=== PATIENT | female | born 2005 | race Caucasian/White ===

== ENCOUNTER 2024-09-22 17:34 | Emergency (ER) | payer SELFPAY ==
[2024-09-22 17:45] VITALS: BP 116/82; PULSE 77; RESP 16; TEMP 36.9; O2SAT 100; BMI 35.5
[2024-09-22 18:30] LABS: Microscopic, Urine URINE MICROSCOPIC (MICROSCOPIC)
[2024-09-22 18:35] LABS: Bilirubin,Urine Negative (Negative); Color,Urine YELLOW (Yellow); Glucose,Urine (UA) Negative (Negative); Ketones,Urine Negative (Negative); Leukocyte Esterase,Urine TRACE (Negative); PH,Urine 7.5 (5.0-8.5); Protein,Urine Negative (Negative); Specific Gravity, Urine 1.020 (1.005-1.030); Urobilinogen,Urine 0.2 EU/dl (0.2)
--- NOTE | 2024-09-22 18:35 | ED_ITS ---
<Statement entered by Titus Ramos MD - 09/22/24 22:25> I was consulted by the BRANDON, and we discussed the complexity of the problems being addressed. I approved the treatment and management plan for this patient's care in the emergency department, thus performing a substantive portion of the medical decision making. Titus Ramos MD, NELIDA, FACEP Discharge Plan Disposition Patient Disposition: Home, Self-Care Prescriptions Prescriptions: New metronidazole 500 mg tablet 500 mg PO BID 7 Days Qty: 14 0RF metronidazole 500 mg tablet 500 mg PO BID 7 Days Qty: 14 0RF Referrals Follow up/Referrals: Provider,Referral, [Primary Care Provider, Medical] - See instructions Activity Restrictions/Add. Instructions Additional Instructions/Restrictions: Today you were evaluated in the emergency department and diagnosed with trichomonas. You will need to complete your entire antibiotic for this to be effective. Do not have any sexual contact within the next 7 days during your treatment. Your partner needs to be notified and treated as well. Please take this antibiotic after eating a full meal as it can cause GI upset. Please increase your fluid intake. You will need to be evaluated by gynecology for follow-up. Return to the ED for any worsening of your condition. Clinical Impressions Clinical Impression: Infection due to trichomonas Instructions Patient Instructions: Facts About Sexually Transmitted Infections Print Language Print Language: Malay Discharge ED Provider: Titus aRmos General Adult HPI General Chief complaint: PAIN Stated complaint: Abdominal Cramps Time Seen by Provider: 09/22/24 17:54 Mode of Arrival: Ambulatory Source of Information: Patient Description of Symptoms (Recalled from ER Triage Doc. by RN): Patient presents to ED for lower abdominal cramping s/p IUD placement almost 2 weeks ago. Denies bleeding, c/o some nausea without vomiting or diarrhea. History of Present Illness HPI narrative: patient is a 18-year-old female with no significant PMH who presents to the ED for complaints of lower abdominal cramping that started today. She states her cramping feels like her normal period cramping. LMP 3 weeks ago. She states she is unsure if she is however uses protection. She states she was recently tested for STI testing and does not want this again. She denies any other complaints at this time. Has not had any medication prior to arrival Related Data Previous Rx's ?Medication ?Instructions ?Recorded metronidazole 500 mg tablet 500 mg PO BID 7 days #14 t abs 09/22/24 metronidazole 500 mg tablet 500 mg PO BID 7 days #14 t abs 09/22/24 Allergies Allergy/AdvReac Type Severity Reaction Status Date / Time No Known Allergies Allergy Verified 09/22/24 18:43 [facility] Disclaimer: The information contained in this section may have been updated after the patient was seen, as this information can be updated by other users. Social History (Updated 09/22/24 @ 19:55 by Isabel Man APRN) Smoking Status: Current every day smoker alcohol intake: never current occupational status: unemployed Travel in the last 8 weeks?: None Have you lived/traveled outside [place] in past 30 days?: No Contact w/someone who lives/traveled outside US past 30 days?: No Exposure to someone with infectious disease in past 14 days?: No Do you have a fever (greater than 100.4 F or 38 C)?: No Have you tested positive for COVID-19?: No Exposed to someone with COVID-19 in past 14 days?: No Do you have a sore throat?: No Do you have a cough?: No Do you have any weakness?: No Do you have any diarrhea?: No Are you experiencing any unusual bleeding?: No Do you have any muscle aches/pain?: No Do you have any abdominal pain?: No Are you experiencing loss of taste or smell?: No ROS Obtained: Yes Systems reviewed as appropriate & no additional complaints except as documented Physical Exam General General appearance: alert and in no apparent distress Head Head exam: atraumatic Eye Eye exam: Present PERRL and EOMI Neck Neck exam: Present full ROM Respiratory Respiratory exam: Present normal lung sounds bilaterally Cardiovascular Cardiovascular exam: Present regular rate Abdominal Exam Abdominal exam: Present soft; Absent distention or tenderness Extremities Exam Extremities exam: Present full ROM Back Exam Back exam: Present normal inspection Neurological Exam Neurological exam: Present alert and oriented X3 Psychiatric Psychiatric exam: Present normal affect Skin Skin exam: Present warm Medical Decision Making Medical Records Screening: Per USPSTF and CDC recommendations, given the prevalence of disease in our region, it is our hospital?s policy to screen for HIV and viral Hepatitis for all patients aged 18 and over and those with ongoing risk factors. Rogerio Inquiry Pt receiving controlled substance: No Vital Signs: 09/22/24 17:45 09/22/24 19:31 09/22/24 19:57 Temperature 98.5 F 98.6 F 98.2 F Temperature Source Oral Oral Pulse Rate 64 67 Pulse Rate [Right] 77 Respiratory Rate 16 16 18 Blood Pressure 120/74 89/55 L Blood Pressure [Right Arm] 116/82 Blood Pressure Mean [Right Arm] 93 Blood Pressure Source Automatic Cuff Blood Pressure Position Sitting 02 Sat by Pulse Oximetry 100 96 Oxygen Delivery Method Room Air Room Air Room Air Lab Data Lab Results 09/22/24 18:10: Urine Color Yellow, Urine Appearance Clear, Urine pH 7.5, Ur Specific [place] 1.020, Urine Protein Negative, Urine Glucose (UA) Negative, Urine Ketones Negative, Urine Blood Trace-i, Urine Nitrate Negative, Urine Bilirubin Negative, Urine Urobilinogen 0.2, Ur Leukocyte Esterase Trace, Urine RBC None, Urine WBC 5-10, Ur Squamous Epith Cells 5-10, Urine Bacteria 1+, Urine Trichomonas Occasional 09/22/24 18:35: WBC 6.2, RBC 4.74, Hgb 12.2, Hct 39.0, MCV 82.3, MCH 25.7 L, M CHC 31.3 L, RDW 14.6, Plt Count 338, MPV 10.4, Neut % (Auto) 47.4, Lymph % (Auto) 36.5, [place] % (Auto) 10.6 H, Eos % (Auto) 4.3, Baso % (Auto) 1.0, Neut # (Auto) 3.0, Lymph # (Auto) 2.3, [place] # (Auto) 0.7, Eos # (Auto) 0.3, Baso # (Auto) 0.1, Sodium 143, Potassium 4.2, Chloride 109 H, Carbon Dioxide 28, Anion Gap 10.2, BUN 5 L, Creatinine 0.80, Estimated Creat Clear 178, Estimated GFR 92, Est GFR ( Amer) 112, Glucose 86, Calcium 9.3, Total Bilirubin 0.3, AST 24, ALT 15, Alkaline Phosphatase 80, Total Protein 7.7, Albumin 4.4, Globulin 3.3 H, Albumin/Globulin Ratio 1.3 09/22/24 18:35 09/22/24 18:35 Orders (Tests/Meds): ED MEDICATIONS Discontinued Medications Generic Name Dose Route Start Last Admin Trade Name Freq PRN Reason Stop Dose Admin Ibuprofen 600 mg 09/22/24 18:04 09/22/24 18:49 Ibuprofen 600 Mg Tablet PO 09/22/24 18:05 600 mg ONCE ONE Administration Metronidazole 500 mg 09/22/24 19:49 09/22/24 19:53 Metronidazole 500 Mg Tablet PO 09/22/24 19:50 500 mg ONCE ONE Administration ORDERS Category Date Time Status CBC w/Auto Diff [Complete Blood Count Auto Diff] Stat Lab 09/22/24 18:35 Completed CMP [Comprehensive Metabolic Panel] Stat Lab 09/22/24 18:35 Completed Urinalysis and Microscopic Stat Lab 09/22/24 18:10 Completed Medical Decision Narrative: In summary, patient is a 18-year-old female with no significant PMH who presents to the ED for complaints of lower abdominal cramping that started today. She states her cramping feels like her normal period cramping. LMP 3 weeks ago. She states she is unsure if she is however uses protection. She states she was recently tested for STI testing and does not want this again. She denies any other complaints at this time. Has not had any medication prior to arrival. She tracks her period on a menstrual cycle tracking brandon. Denies fever, chills, body aches, headache, chest pain, shortness of breath, nausea, vomiting, dysuria, back pain, vaginal bleeding. Differential diagnosis menstrual cycle, UTI, STI, among others. Discussed with patient we will proceed with lab work and urinalysis. CBC unremarkable for any leukocytosis, stable H&H. CMP unremarkable for any infectious process. Urinalysis remarkable for trichomonas. Discussed diagnosis of trichomonas with patient, I advised her she will need to complete the entirety of the antibiotic. We will administer her first dose in the ED tonight. Discussed that she will need to have a follow-up appointment with gynecology. Advised her she will need to inform her partner and he will need to be treated as well. Discussed that she will need to not have any sexual contact over the next 7 days. Advised her to increase her fluid intake and take medication with food. Discussed return precautions. Patient verbalized understanding. Critical Care Critical Care Time Critical Care Time: No
--- OUTSIDE RECORDS SUMMARY | 2024-09-22 18:36 | XMS_ITS | Clinical Summary ---
Author Organization [employer] ([place], [place], [place], [place]) Address [address] [place] [address] Care Team Providers Care Reception Specialist Name Role Phone Skylar Espinal MD Primary Care Provider [phone] Allergies No known active allergies Medications No known medications Social History Tobacco Use Types Packs/Day Years Used Date Smoking Tobacco: Every Day Smokeless Tobacco: Never Tobacco Cessation:Ready to Q uit: Not Asked; Counseling Given: Not Answered Comments:Vape Food Insecurity Answer Date Recorded Food run out past 12 months Not on file 02/08 Food did not last past 12 months Not on file 02/19/2023 Employment Answer Date Recorded Help finding and keeping a job Not on file 0 02/19/2023 Family and Community Support Answer Yadiel e Recorded Help with Day to Day Activities Not on file 02/19/2023 Feeling Lonely or Isolated Not on file 02/19 Educational Attainment Answer Date Moses rded Speak language other than Iranian at home Not on file 02/19/2023 Want help with school or training Not on file 02/19/2023 Substance Use Answer Date Recorded Used prescription meds for non-medical reasons N ot on file 02/19/2023 Used illegal drugs past 12 months Not on file 02/19/2023 Comments Unknown Sex and Gender Information Value Date Recorded Sex Assigned at Not on file Legal Sex Female 5:54 PM CDT Gender Identity Not on file Sexual Orientation Not on file Last Filed Vital Signs Vital Sign Reading Time Taken Comments Blood Pressure 122/62 12/26/2022 7:57 PM EST Pulse 88 12/26/2022 7:57 PM EST Temperature 36.4 C (97.5 F) 12/26/2022 7:02 PM EST Respiratory Rate 18 12/26/2022 7:57 PM EST Oxygen Saturation 100% 12/26/2022 7:57 PM EST Inhaled Oxygen Concentration - - Weight 98.4 kg (217 lb) 12/26/2022 7:02 PM EST Height 167.6 cm (5' 6 ) 12/26/2022 7:02 PM EST Body Mass Index 35.02 12/26/2022 7:02 PM EST Body Mass Index Percentile 97.40% 12/26/2022 7:0 2 PM EST Growth Chart: [facility] (Girls, 2- 20 Years) Plan of Treatment Health Maintenance Due Date Last Done Comments Depression Screening (12+) 2016 HIV Screening 11/12/2019 Meningococcal B Vaccine (1 o f 2 - Standard) 2020 Hepatitis C Screening 2022 COVID-19 VACCINE (3 - 2023-2 5 season) 2023 10/07/2020, 09/16/2020 Pneumococcal Vaccine: 0-49 Y ears (1 of 2 - PCV) 11/12/2023 03/17/2007, 2004 Tobacco Cessation Counseling and Screening (12+) 12/27/2023 12/26/2022 Influenza Vaccine (#1) 2024 DTAP/TDAP/TD VACCINES (6 - T d or Tdap) 05/01/2026 05/01/2016, 09/08/2007, 02/25/2006, Additional history exists Insurance [facility] Care Teams Reception Specialist Relationship Specialty Start Date End Date Skylar Espinal MD [address] [place] [address] PCP - General Family Medicine 07/28/22
[2024-09-22 18:46] LABS: Albumin Level 4.4 g/dl (3.5-5.0); Chloride 109 mmol/L (98-107); Potassium 4.2 mmoL/L (3.5-5.1); Sodium 143 mmol/L (136-145)
[2024-09-22 18:49] LABS: Alanine Aminotransferase 15 U/L (12-78); Albumin/Globulin Ratio 1.3 (1.1-1.8); Alkaline Phosphatase 80 U/L (38-126); Anion Gap 10.2 mEq/L (5-15); Aspartate Amino Transferase 24 U/L (14-36); Bilirubin,Total 0.3 mg/dl (0.2-1.3); Blood Urea Nitrogen 5 mg/dl (7-17); Carbon Dioxide 28 mmol/L (22.0-30.0); Creatinine Clearance Estimated 178 mL/min (50-200); Creatinine,Serum 0.80 mg/dl (0.52-1.04); Estimated Glomerular Filt Rate 92 ml/min (>60); GFR (African American) 112 ML/MIN (>60); Globulin 3.3 g/dL (1.3-3.2); Total Protein,Serum 7.7 g/dl (6.3-8.2)
[2024-09-22] MEDS: IBUPROFEN 600 MG TABLET PO (18:49)
[2024-09-22 18:50] LABS: Calcium 9.3 mg/dl (8.4-10.2); Glucose 86 mg/dl (74-100); Hematocrit 39.0 % (37.0-47.0); Hemoglobin 12.2 g/dL (12.2-16.2); Immature Granulocytes % 0.2 %; Mean Corpuscular HGB Conc 31.3 g/dL (31.8-35.4); Mean Corpuscular Hemoglobin 25.7 pg (27.0-31.2); Mean Corpuscular Volume 82.3 fl (81-99); Nucleated Red Blood Cells % 0 %; Platelet Count 338 K/mm3 (142-424); Red Blood Count 4.74 M/mm3 (4.20-5.40); Red Cell Distribution Width-SD 43.9 fL; White Blood Count 6.2 K/mm3 (4.5-13.0)
[2024-09-22 18:53] LABS: Bacteria,Urine 1+ /lpf; Trichomonas,Urine Occasional /lpf
[2024-09-22 19:31] VITALS: BP 120/74; PULSE 64; RESP 16; TEMP 37; O2SAT 96
[2024-09-22 19:57] VITALS: BP 89/55; PULSE 67; RESP 18; TEMP 36.8; O2SAT 97
== END 2024-09-22 20:02 | disposition home or self-care (01) ==
PROVIDERS: Nurse Practitioner; Emergency Provider Student in an Organized Health Care Education/Training Program
DX: R10.30 Lower abdominal pain, unspecified (principal); A59.9 Trichomoniasis, unspecified
CPT/HCPCS: 80053; 81001; 85025; 99283

== ENCOUNTER 2024-12-04 22:41 | Emergency (ER) | payer OTHER, SELFPAY ==
[2024-12-04 22:45] VITALS: BP 163/84; PULSE 89; RESP 18; TEMP 36.8; O2SAT 100; BMI 37.1
--- OUTSIDE RECORDS SUMMARY | 2024-12-04 22:51 | XMS_ITS | Data Portability ---
Author Organization [facility] [place] [address] [place] [address] Assessment No assessment recorded. Plan of Treatment Reminders Order Date Submit Date Provider Last Modified By Organization Details Last Modified Time Details Appointments None recorded. Lab test, urine [email or web address] [place] [address], [address] [place] [address], [id number], 5 14:55:55 CT + NG RNA, PCR, unspecified specimen 2024 025 [facility], [address] [place] [address], [place], [address], 5 15:07:46 test, urine 2024 025 [facility], [address] [place], [address], 5 10:17:26 unlisted lab - sureswab(R) advanced vaginitis plus, tma 2023 024 [facility], [address], [place], [address], 4 01:39:40 CT + NG + TV, DNA, urine/swab 2023 024 silver [facility], [address], [place], [address], 15:05:21 test, urine 2023 024 [email or web address] [facility], [address], [place], [address], 18:00:55 Referral None recorded. Procedures insertion, intrauterin e device (PROC) 2024 025 [email or web address] Not available 08:38:43 Surgeries None recorded. Imaging None recorded. Medication Orders ParaGard T 380A 380 square mm intrauterin e device 2024 025 [email or web address] Not available 15:07:42 metronidazo le 500 mg tablet 2023 024 [email or web address] [facility], [address] [facility], [place], [place], [id number], 09:54:22 Nextstellis 3 mg-14.2 mg (28) tablet 2023 024 [facility], [address] [place], [address], 15:51:45 Patient TargetsNo targets recorded. Patient Instructions Encounter Date Encounter Id Patient Instructions Last Modified By Organization Details Last Modified Time 09/08/2024 [id number] learning about control: intrauterine device (iud) [email or web address] Not available 09/08/2024 10:14:18 09/13/2024 [id number] intrauterine device (IUD) insertion: care instructions [email or web address] Not available 09/13/2024 14:40:40 10/04/2024 [id number] transmission of /treatment of/prevention of STD's Not available 10/04/2024 13:41:15 Reason for Referral None Reported. Results Created Date Observation Date Name Description Value Unit Range Abnormal Flag Note LastModifiedBy Organization Detail LastModifiedTime 04/28/19 24 04/28/2023 pregn mercedez test, urine HCG negati ve Not Available [address] [facility], [place], [address], 04/28/2023 15:14:11 09/03/19 24 09/04/2023 SURES WAB(R ) ADVAN NIKOLAS VAGIN ITIS PLUS, TMA sureswab(R) adv bacterial vaginosis (bv), tma NEGATI VE negati ve normal Not Available [facility] [address] [facility], [place], [address], 09/04/2023 14:53:43 09/03/19 24 09/04/2023 SURES WAB(R ) ADVAN NIKOLAS VAGIN ITIS PLUS, TMA ousmane species NOT DETECT ED not detect ed normal Not Available [facility] [address] [facility], [place], [address], 09/04/2023 14:53:43 09/03/19 24 09/04/2023 SURES WAB(R ) ADVAN NIKOLAS VAGIN ITIS PLUS, TMA ousmane glabrata NOT DETECT ED not detect ed normal Rama da speci es C. albic ans, C. tropi calis , C. parap antionette is, and/o r C. dubli niens is can be detec petty, but not diffe renti ated, in the Rama da spp. resul t. Not Available [facility] [address] [facility], [place], [address], 09/04/2023 14:53:43 09/03/19 24 09/04/2023 SURES WAB(R ) ADVAN NIKOLAS VAGIN ITIS PLUS, TMA trichomonas vaginalis (TV), tma NOT DETECT ED not detect ed normal Not Available [facility] [address] [facility], [place], [address], 09/04/2023 14:53:43 09/03/19 24 09/04/2023 SURES WAB(R ) ADVAN NIKOLAS VAGIN ITIS PLUS, TMA chlamydia trachomatis RNA, tma, urogenital DETECT ED not detect ed abnormal If resul ts do not corre late with clini francine findi ngs, testi ng using an alter xavier molec ular targe t which ampli fies diffe rent carolynn ic seque nces can be perfo rmed on the same sampl e for resul t confi rmati on withi n 7 days of sampl e recei pt or per perfo rming labor atory speci men reten tion polic y. Alter xavier targe t testi ng is avail able; 10113 (C. trach omati s) [place] [address] (N. gonor rhoea e). Not Available [facility] [address] [place], [address], 09/04/2023 14:53:43 09/03/19 24 09/04/2023 SURES WAB(R ) ADVAN NIKOLAS VAGIN ITIS PLUS, TMA neisseria gonorrhoeae RNA, tma, urogenital NOT DETECT ED not detect ed normal For addit ional infor pj xiong e refer to https ://ed ati on.qu estGraft Concepts. Crowdpac/f aq/FA Q154 (This link is being provi ded for infor rick maria/ theresa cuellar purpo ses only. ) Not Available [facility] [address] [facility], [place], [address], 09/04/2023 14:53:43 09/09/19 25 09/12/2024 CHLAM YDIA/ GC PHILIPPE, CONFI RMATI ON chlamydia trachomatis, PHILIPPE Negati ve negati ve Not Available [facility] [address] [facility], [place], [address], 09/12/2024 15:07:46 09/09/19 25 09/12/2024 CHLAM YDIA/ GC PHILIPPE, CONFI RMATI ON neisseria gonorrhoeae, PHILIPPE Negati ve negati ve Not Available [facility] ([facility]) [address], [place], [address], 09/12/2024 15:07:46 09/09/1909/08/2024 pregn mercedez test, urine HCG negati ve Not Available [facility] [address] [place], [address], 09/08/2024 10:11:07 09/14/19 25 09/13/2024 pregn mercedez test, urine HCG negati ve Not Available [facility] [address] [place], [address], 09/13/2024 14:40:38 Result Notes None recorded. Problems Name Problem SNOMED Code Status Onset Date Resolution Date Notes Provider Name and Address Organization Details Recorded Time Body mass index 30+ - obesity 510323137 Active 2021 Problem Code: Z68.30; Problem Code Type: ICD-10; Not Available [facility] 2 21:06:32 Influenz a 6472450 Completed 202104/28/2023 Problem Code: J11.1; Problem Code Type: ICD-10; Mel Leach CNM [address] [place] [address], [address] , [employer] 4 14:41:05 Trichomo nal vaginiti s [id number] Active 2024 Mel Leach CNM [address] [place] [address], [address] , [employer] 5 13:40:27 Problem Notes None recorded. Procedures Surgical History Date Name Laterality Status Provider Name and Address Organization Details Recorded Time IUD Insertion completed Mel Leach CNM [address] [place] [address], [address], [facility] [employer] 09/12/2024 20:49:26 Imaging Results None recorded. Procedure Notes None recorded. Medical Equipment None Reported. Allergies No known drug allergies Medications Name Sig Start Date Stop Date Status Note LastModified by Organization Details LastModified Time cyclobenzap rine 10 mg tablet 02/12 completed Not Available Not Available Not Available amoxicillin 500 mg capsule 04/27 completed Not Available Not Available Not Available fluconazole 100 mg tablet TAKE 1 TABLET (100 MG TOTAL) BY MOUTH DAILY FOR 5 DOSES. 04/27 completed Not Available Not Available Not Available terbinafine HCl 1 % topical cream 02/12 completed Not Available Not Available Not Available prednisone 10 mg tablet 04/27 completed Not Available Not Available Not Available doxycycline hyclate 100 mg capsule Take 1 capsule twice a day by oral route for 7 days. 09/08 completed Not Available Not Available Not Available ibuprofen 800 mg tablet 04/27 completed Not Available Not Available Not Available benzonatate 200 mg capsule TAKE 1 CAPSULE BY MOUTH THREE TIMES A DAY NEEDED FOR COUGH FOR UP TO 7 DAYS 04/27 completed Not Available Not Available Not Available phenazopyri dine 200 mg tablet TAKE 1 TABLET BY MOUTH THREE TIMES DAILY AFTER MEALS FOR 2 DAYS 04/27 completed Not Available Not Available Not Available ondansetron HCl 4 mg tablet 04/27 completed Not Available Not Available Not Available hydroxyzine pamoate 50 mg capsule 04/27 completed Not Available Not Available Not Available metronidazo le 500 mg tablet TAKE 1 TABLET BY MOUTH TWICE DAILY FOR 7 DAYS active Not Available Not Available No t Available Depo-Councilperson a 150 mg/mL intramuscul ar suspension Inject 1 mL every 3 months by intramusc ular route. 04/27 completed Not Available Not Available Not Available tamsulosin 0.4 mg capsule TAKE 1 CAPSULE BY MOUTH ONCE DAILY FOR 14 DAYS 04/27 completed Not Available Not Available Not Available cephalexin 500 mg capsule 04/27 completed Not Available Not Available Not Available diclofenac sodium 75 mg tablet,abraham yed release 02/12 completed Not Available Not Available Not Available methylpredn isolone 4 mg tablets in a dose pack TAKE 6 TABLETS ON DAY 1 DIRECTED ON PACKAGE AND DECREASE BY 1 TAB EACH DAY FOR A TOTAL OF 6 DAYS 04/27 completed Not Available Not Available Not Available albuterol sulfate HFA 90 mcg/actuati on aerosol inhaler INHALE 1 PUFF BY MOUTH VIA INHALER EVERY 6 HOURS NEEDED FOR WHEEZING. 04/27 completed Not Available Not Available Not Available bromphenira mine-pseudo ephedrine-D M 2 mg-30 mg-10 mg/5 mL oral syrup 04/27 completed Not Available Not Available Not Available cefdinir 300 mg capsule 04/27 completed Not Available Not Available Not Available fluticasone propionate 50 mcg/actuati on nasal spray,suspe nsion 04/27 completed Not Available Not Available Not Available sertraline 50 mg tablet 04/27 completed Not Available Not Available Not Available ParaGard T 380A 380 square mm intrauterin e device Take 1 device by intrauter ine route. 2024 active Not Available Not Available Not Avai lable doxycycline hyclate 100 mg tablet TAKE 1 TABLET BY MOUTH EVERY 12 HOURS FOR 14 DAYS 04/27 completed Not Available Not Available Not Available amoxicillin 875 mg-potassiu m clavulanate 125 mg tablet 04/27 completed Not Available Not Available Not Available 02/27 () 1 mg-20 mcg (21)/75 mg (7) tablet take 1 tablet by oral route once daily starting on wednesdayapr 0602/12 completed Not Available Not Available Not Available nitrofurant oin monohydrate /macrocryst als 100 mg capsule 04/27 completed Not Available Not Available Not Available hydroxyzine HCl active Not Available Not Available Not Available cyclobenzap rine 7.5 mg tablet 04/27 completed Not Available Not Available Not Available 28 mg iron-800 mcg tablet 04/27 completed Not Available Not Available Not Available Nextstellis 3 mg-14.2 mg (28) tablet Take 1 tablet every day by oral route. 09/02 completed Not Available Not Available Not Available Vitals Date Recorded Body height Body mass index (BMI) [Percentile] Per age and sex Body mass index (BMI) Body weight Systolic And Diastolic Provider Name and Address Organization Details Last Updated DateTime 04/28/2023 167.64 cm 97.3 % 35.1 kg/m2 39105.2 6 g 106/74 mm[Hg] JEN CEBALLOS [facility] 4 15:13:00 Date Recorded Body height Body mass index (BMI) Body mass index (BMI) [Percentile] Per age and sex Body weight Oxygen saturation Oxygen saturation in Arterial blood by Pulse oximetry Heart rate Systolic And Diastolic Provider Name and Address Organization Details Last Updated DateTime 4 167.64 cm 33.9 kg/m2 96.6 % 70295.4 g 98 % 98 % 78 /min 132/80 mm[Hg] BRANDI MENDES [employer] 4 15:54:10 Date Recorded Body height Body mass index (BMI) Body mass index (BMI) [Percentile] Per age and sex Body weight Heart rate Oxygen saturation Oxygen saturation in Arterial blood by Pulse oximetry Systolic And Diastolic Provider Name and Address Organization Details Last Updated DateTime 5 167.64 cm 35.3 kg/m2 96.84 % 16800.7 3 g 81 /min 97 % 97 % 124/83 mm[Hg] [employer] 5 09:59:43 Date Recorded Body height Body mass index (BMI) [Percentile] Per age and sex Body mass index (BMI) Body weight Heart rate Oxygen saturation Oxygen saturation in Arterial blood by Pulse oximetry Systolic And Diastolic Provider Name and Address Organization Details Last Updated DateTime 5 167.64 cm 96.71 % 35.1 kg/m2 32007.7 g 65 /min 98 % 98 % 101/76 mm[Hg] [employer] 5 14:47:53 Date Recorded Body height Body mass index (BMI) Body mass index (BMI) [Percentile] Per age and sex Body weight Heart rate Oxygen saturation Oxygen saturation in Arterial blood by Pulse oximetry Systolic And Diastolic Provider Name and Address Organization Details Last Updated DateTime 5 167.64 cm 36.2 kg/m2 97.2 % 678024. 69 g 66 /min 98 % 98 % 118/76 mm[Hg] [facility] 5 13:33:27 Social History Question Answer Notes LastModified by Organizat ion Details LastModified Time Tobacco Smoking Status Former Smoker JEN arce [employer] 08/04/2022 15:03:22 Do You Have An Advance Directive? No [email or web address] Information not available 10/25/2024 Is Your Home Air Conditioned? Yes [email or web address] Information not available 02/12/2022 Are You Blind Or Do You Have Difficulty Seeing? No Information not available 08/04/2022 What Is Your Level Of Caffeine Consumption? Occasional Information not available 08/04/2022 In The 14 Days Before Symptom Onset, Have You Had Close Contact With A Laboratory-confi rmed COVID-19 While That Case Was Ill? No Information not available 08/04/2022 In The 14 Days Before Symptom Onset, Have You Had Close Contact With A Person Who Is Under Investigation For COVID-19 While That Person Was Ill? No Information not available 08/04/2022 Have You Been To An Area Known To Be High Risk For COVID-19? No Information not available 08/04/2022 Are You Deaf Or Do You Have Serious Difficulty Hearing? No Information not available 08/04/2022 What Type Of Diet Are You Following? REGULAR Information not available 08/04/2022 When Did You Quit Smoking? 1-5yearssincelastc igarette Information not available 08/04/2022 What Grade Are You In? [id number] Information not available 08/04/2022 Are There Any Guns Present In Your Home? No [email or web address] Information not available 02/12/2022 Which Of Your Hands Is Dominant? Right Information not available 08/04/2022 What Is Your Home Situation? Relatives Information not available 08/04/2022 Where [facility] You Live? [facility] Information not available 02/12/2022 Do You Have A Medical Power Of Guide [place]? No [email or web address] Information not available 10/25/2024 What Was The Date Of Your Most Recent Tobacco Screening? 10/25/2024 [email or web address] Information not available 10/25/2024 What Is Your Current Pack Years? 10packyears Information not available 04/28/2023 Do You Have Any Pets? Yes [email or web address] Information not available 02/12/2022 Do You Use Protection During Sex? No Information not available 08/04/2022 Do You Use Protection Against STDs? No Information not available 08/04/2022 What Is Your Relationship Status? Single Information not available 08/04/2022 What Is The Name Of Your School? [employer] [email or web address] Information not available 02/12/2022 Do You Use Your Seat Belt Or Car Seat Routinely? Yes [email or web address] Information not available 02/12/2022 Are You Sexually Active? Yes Information not available 08/04/2022 Do You Have Smoke And Carbon Monoxide Detectors In Your Home? Yes [email or web address] Information not available 02/12/2022 At What Age Did You Start Smoking Tobacco? 15 Information not available 08/04/2022 Are You Passively Exposed To Smoke? No Information not available 02/12/2022 Are There Any Smokers In Your House? No [email or web address] Information not available 02/12/2022 Do You Participate In Social Media? Yes [email or web address] Information not available 02/12/2022 Do You Use Sunscreen Routinely? No [email or web address] Information not available 02/12/2022 Has Tobacco Cessation Counseling Been Provided? Yes [email or web address] Information not available 09/11/2024 On What Date Was Tobacco Cessation Counseling Provided? 10/25/2024 [email or web address] Information not available 10/25/2024 How Many Years Have You Smoked Tobacco? 1 Information not available 04/28/2023 Have You Recently Traveled Abroad? No Information not available 08/04/2022 Do You Have Difficulty Walking Or Climbing Stairs? No Information not available 08/04/2022 Are You Currently In School? Yes Information not available 08/04/2022 What Contraceptive Method Was Reported At Start Of This Visit? None Information not available 08/04/2022 Do You Have Any Dietary Restrictions? No Information not available 08/04/2022 Sex: Female Functional Status Question Answer Note LastModified by Organizat ion Details LastModified Time Do you use any illicit or recreational drugs? No Information not available 04/28/2023 Do you or have you ever used any other forms of tobacco or nicotine? Yes Information not available 04/28/2023 What is your level of alcohol consumption? Occasional Information not available 04/28/2023 Do you or have you ever used smokeless tobacco? Never used smokeless tobacco Information not available 08/04/2022 Are you currently employed? No Information not available 08/04/2022 Do you have transportation difficulties? No Information not available 08/04/2022 Are you able to walk independently without assistance or assistive devices? [email or web address] Information not available 08/04/2022 Do you have difficulty doing errands alone? No Information not available 08/04/2022 Are you able to care for yourself independently? Yes Information not available 08/04/2022 Do you have difficulty dressing, bathing, grooming, or toileting? No Information not available 08/04/2022 Do you or have you ever used e-cigarettes or vape? Current user of electronic cigarettes Information not available 04/28/2023 Mental Status Question Answer Note LastModified by Organization D etails LastModified Time Do you have difficulty concentrating, remembering or making decisions? No Information no t available 08/04/2022 Family History Relationship Description Onset Age of this Age Resolved Age Notes LastModified by Organization Details LastModified Time Father No current problems or disability [email or web address] Not available 02/12 16:27:51 Father No current problems or disability [email or web address] Not available 09/06 12:18:38 Mother No current problems or disability [email or web address] Not available 02/12 16:27:51 Mother No current problems or disability [email or web address] Not available 09/06 12:18:38 Medical History No medical history recorded. Gynecological History Statement/Question Response Flow Moderate Sexually Active? Y Menses Monthly N STIs/STDs N HPV Vaccine N Date of Last Pap Smear Sexual Problems? N Current Control Method None Age at Menarche 10 LMP Definite Obstetrics History GPAL:G 1 P 0 0 1 0 Type Value Multiple Births 0 Full Term 0 Induced 0 Spontaneous 1 Premature 0 Living 0 Ectopics 0 Total 1 Immunizations Vaccine Type Date Status Note Provider Nam e and Address Organization Details Recorded Time HPV9 5 completed Alejandra Bong null, [employer] 09/08/2024 10:19:35 Hib-Hep B 8 completed Yara arce, [employer] 09/07/2023 12:18:40 IPV 7 completed Yara [place] claude, [employer] 09/07/2023 12:18:40 IPV 6 completed Yara arce, [employer] 09/07/2023 12:18:40 IPV 0 completed Yara arce, [employer] 09/07/2023 12:18:40 IPV 8 completed Yara arce, [employer] 09/07/2023 12:18:40 MMR 7 completed Yara Arorae claude, [employer] 09/07/2023 12:18:40 MMR 0 completed Yara arce, [employer] 09/07/2023 12:18:40 MMR 8 completed Yara arce, [employer] 09/07/2023 12:18:40 COVID-19, mRNA, LNP-S, PF, 30 mcg/0.3 mL dose 1 completed Yara Arorae claude, [employer] 09/07/2023 12:18:40 COVID-19, mRNA, LNP-S, PF, 30 mcg/0.3 mL dose 1 completed Yara Arorae null, [employer] 09/07/2023 12:18:40 pneumococcal conjugate PCV 7 8 completed Yara Arorae null, [employer] 09/07/2023 12:18:40 pneumococcal conjugate PCV 7 5 completed Yara Rishi null, [employer] 09/07/2023 12:18:40 Tdap 7 completed Yara Rishi arce, [employer] 09/07/2023 12:18:40 varicella 8 completed Yara [place] claude, [employer] 09/07/2023 12:18:40 varicella 0 completed Yara [place] claude, [employer] 09/07/2023 12:18:40 varicella 8 completed Yara [place] claude, [employer] 09/07/2023 12:18:40 Influenza, split virus, trivalent, preservative 8 completed Yara [place] null, [employer] 09/07/2023 12:18:40 Influenza, split virus, trivalent, PF 3 completed Yara [place] claude, [employer] 09/07/2023 12:18:40 HPV, quadrivalent 7 completed Yara [place] claude, [employer] 09/07/2023 12:18:40 Hep B, adolescent or pediatric 5 completed Yara [place] null, [employer] 09/07/2023 12:18:40 Hep B, adolescent or pediatric 5 completed Yara [place] claude, [employer] 09/07/2023 12:18:40 Hep A, ped/adol, 2 dose 4 completed Yara [place] claude, [employer] 09/07/2023 12:18:40 Hep A, ped/adol, 2 dose 8 completed Yara [place] null, [employer] 09/07/2023 12:18:40 Hib (PRP-OMP) 6 completed Yara [place] null, [employer] 09/07/2023 12:18:40 Hib (PRP-OMP) 5 completed Yara [place] null, [employer] 09/07/2023 12:18:40 Meningococcal MCV4O 7 completed Yara arce, [employer] 09/07/2023 12:18:40 DTaP 6 completed Yara [place] null, [employer] 09/07/2023 12:18:40 DTaP 6 completed Yara [place] null, [employer] 09/07/2023 12:18:40 DTaP, unspecified formulation 7 completed Yara [place] null, [employer] 09/07/2023 12:18:40 DTaP, unspecified formulation 8 completed Yara arce, [employer] 09/07/2023 12:18:40 meningococcal MCV4, unspecified formulation 7 completed Yara arce, [employer] 09/07/2023 12:18:40 DTaP-Hep B-IPV 5 completed Yara arce, [employer] 09/07/2023 12:18:40 Influenza, live, quadrivalent, intranasal 4 completed Yara arce, [employer] 09/07/2023 12:18:40 Influenza, live, quadrivalent, intranasal 5 completed Yarajuan arce, [employer] 09/07/2023 12:18:40 Hib-Hep B 8 completed JEN TEVIS null, [employer] 04/28/2023 15:13:06 IPV 7 completed JEN TEVIS null, [employer] 04/28/2023 15:13:06 IPV 6 completed JEN TEVIS null, [employer] 04/28/2023 15:13:06 IPV 0 completed JEN TEVIS null, [employer] 04/28/2023 15:13:06 IPV 8 completed JEN TEVIS null, [employer] 04/28/2023 15:13:06 MMR 7 completed JEN TEVIS null, [employer] 04/28/2023 15:13:06 MMR 0 completed JEN TEVIS null, [employer] 04/28/2023 15:13:06 MMR 8 completed JEN TEVIS null, [employer] 04/28/2023 15:13:06 COVID-19, mRNA, LNP-S, PF, 30 mcg/0.3 mL dose 1 completed JEN TEVIS null, [employer] 04/28/2023 15:13:06 COVID-19, mRNA, LNP-S, PF, 30 mcg/0.3 mL dose 1 completed JEN TEVIS null, [employer] 04/28/2023 15:13:06 pneumococcal conjugate PCV 7 8 completed JEN TEVIS null, [employer] 04/28/2023 15:13:06 pneumococcal conjugate PCV 7 5 completed JEN TEVIS null, [employer] 04/28/2023 15:13:06 Tdap 7 completed JEN TEVIS null, [employer] 04/28/2023 15:13:06 varicella 8 completed JEN TEVIS null, [employer] 04/28/2023 15:13:06 varicella 0 completed JEN TEVIS null, [employer] 04/28/2023 15:13:06 varicella 8 completed JEN TEVIS null, [employer] 04/28/2023 15:13:06 Influenza, split virus, trivalent, preservative 8 completed JEN TEVIS null, [employer] 04/28/2023 15:13:06 Influenza, split virus, trivalent, PF 3 completed JEN TEVIS null, [employer] 04/28/2023 15:13:06 HPV, quadrivalent 7 completed JEN TEVIS null, [employer] 04/28/2023 15:13:06 Hep B, adolescent or pediatric 5 completed JEN TEVIS null, [employer] 04/28/2023 15:13:06 Hep B, adolescent or pediatric 5 completed JEN TEVIS null, [employer] 04/28/2023 15:13:06 Hep A, ped/adol, 2 dose 4 completed JEN TEVIS null, [employer] 04/28/2023 15:13:06 Hep A, ped/adol, 2 dose 8 completed JEN TEVIS null, [employer] 04/28/2023 15:13:06 Hib (PRP-OMP) 6 completed JEN TEVIS null, [employer] 04/28/2023 15:13:06 Hib (PRP-OMP) 5 completed JEN TEVIS null, [employer] 04/28/2023 15:13:06 Meningococcal MCV4O 7 completed JEN TEVIS null, [employer] 04/28/2023 15:13:06 DTaP 6 completed JEN TEVIS null, [employer] 04/28/2023 15:13:06 DTaP 6 completed JEN TEVIS null, [employer] 04/28/2023 15:13:06 DTaP, unspecified formulation 7 completed JEN TEVIS null, [employer] 04/28/2023 15:13:06 DTaP, unspecified formulation 8 completed JEN TEVIS null, [employer] 04/28/2023 15:13:06 meningococcal MCV4, unspecified formulation 7 completed JEN TEVIS null, [employer] 04/28/2023 15:13:06 DTaP-Hep B-IPV 5 completed JEN TEVIS null, [employer] 04/28/2023 15:13:06 Influenza, live, quadrivalent, intranasal 4 completed JEN TEVIS null, [employer] 04/28/2023 15:13:06 Influenza, live, quadrivalent, intranasal 5 completed JEN TEVIS null, [employer] 04/28/2023 15:13:06 Past Encounters Encounter ID Performer Location Encounter Start Date Encounter Closed Date Diagnosis/Indication Diagnosis SNOMED-CT Code Diagnosis ICD10 Code Diagnosis IMO Codes Diagnosis Note [id number] Srinivasa Rangel [place] [id number] 7 02/12/2022 15:56:36 02/16/2022 16:37:54 Contraception care 252190575 Z30.40 [id number] Emily Olea II, MD [place] [id number] 7 02/16/2022 16:05:40 02/17/2022 08:56:06 Surveillance of contraception 125352101 Z30.40 [id number] Mel Leach [facility] [address] [place] [address] 08/04/2022 14:27:35 08/04/2022 15:33:17 Abdominal pain 05230859 R10.9 resolved after ED visit/rx one week ago Family domo nning surveillance 501214606 Z30.09 [id number] Mel Leach [facility] [address] [facility] [place] [address] 04/28/2023 14:36:24 04/28/2023 16:57:58 Initial prescription of oral contraception 865250064 Z30.011 Gynecologi c examination 26655154 Z01.756 [id number] Srinivasa Juan Carlos [facility] [address] [place] [address],[place] [address] 09/03/2023 15:24:58 09/03/2023 16:15:28 Vaginal discharge 970980220 N89.8 [id number] Mel Leach [facility] [address] [place] [address] 09/08/2024 09:43:19 09/08/2024 10:19:50 Gynecologic examination 70864357 Z01.419 Contracept [facility] education done [id number] 54046 Z30.09 [id number] Mel Leach [facility] [address] [facility] [place] [address] 09/13/2024 14:35:18 09/13/2024 14:58:50 Insertion of intrauterine contraceptive device 90552403 Z30.430 [id number] Mel Leach [facility] [address] [place] [address] 10/04/2024 13:26:55 10/04/2024 13:41:46 Intrauterine contraceptive device in situ 709080430 Z30.884 [id number] Trichomonal vaginitis 27 9425482 A59.01 [id number] already treated as well as partner pt req recheck w rto Health Concerns Section Related Observation LastModified by Organization Detai ls LastModified Time None Recorded Concern Status LastModified by Organization Details LastModified Time None Recorded Advance Directives Directive N: Payers Insurance Date Sequence Insurance Name Policy Number Policy Amanda Covered Member ID Amanda Member ID Guarantor Name 09/07/2023 1 UNSPECIFIED REMIT PAYOR Kayleigh Mendes 09/07/2023 1 *SELF PAY* Sa kb Mendes 09/12/2024 1 [employer] [facility] (MEDICAID [facility] Kayleigh Mendes [id number] Kayleigh Mendes 09/12/2024 [place] [facility] [place]ICAID[place] Kayleigh Mendes [id number] Kayleigh K [place] 09/07/2023 1 *SELF PAY* Sa kb Ewing [place] 11/13/2024 2 *SELF PAY* Sa kb Ewing [place] 11/13/2024 1 [employer] [facility] (MEDICAID HMO) Kayleigh Ewing [place] [id number] Kayleigh Ewing [place] 11/14/2024 1 [facility] ([facility]ICA[facility]) Kayleigh Ewing [place] [id number] Kayleigh K [place] Notes Date Note Type Note Provider Name and Address Organization Details Recorded Time 04/28/2023 text/html ROS as noted in the HPI Pt is an 17yr old sexually active female who would like to restart OCP She did not like depo Mel Leach CNM [address] [place], [address], [employer] 05/03/2023 18:05:58 09/03/2023 text/html ROS as noted in the HPI Pt here today with c/o pelvic pain/cramping with foul smelling d/c. Is sexually active and declines control today. Pt is not using condoms. States is concerned for STI. Srinivasa Rangel CNM [address] [place], [address], [employer] 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 09/08/2024 10:15:43 09/13/2024 text/html ROS as noted in the HPI Pt is here for a scheduled insertion of a Paraguard IUD She is on her menses Mel Leach CNM [address] [place], [address], [employer] 09/13/2024 14:57:54 10/04/2024 text/html Generic HPI TemplateReported by PatientROS as noted in the HPI Pt is here to disc some labs she had done in the ED She was having some pelvic cramps and was dx w Trich Her new partner has also been treated and she is finishing her rx She no longer has sx Mel Leach, VIKY [address] [place], [address], [facility]. 10/04/2024 13:41:22 OBGyn Episode Ob Episode Information Episode Created Date Number of Fetuses Patient Bloodtype Patient rh Status Prepregnancy Weight lbs Domestic Partner Domestic Partner Phone Father Name Casework Specialist Status 04/28/19 24 1 CLOSED Fetus Data First Name Last Name Admitted to NICU Weight (g) Sex Living Outcome Pediatric Complications Fetus ID Race Codes Race Delivery Type , Spontane ous [id number] Arturo Calculation Initial Arturo Date Initial Exam Date Initial Exam Provider Initial Ultrasound Date Last Menstrual Period Date Ultra Sound Weeks Gestation 0 Eighteen To Twenty Week Arturo Update Ultra Sound Date Fundal Height At Umbil Quickening Date Ultra Sound Latest Weeks Gestation Final Arturo Confirmed By Final Arturo Confirmed Date Final Arturo Date Ultra Sound Latest Days Gestation 0 0 Menstrual History Last Menstrual Date Menses Monthly On Bcp Conception Prior Menses Frequency Hcg Plus Date Menarche Onset Age Delivery Information Delivery Date Delivery Type Labor Anesthesia Weeks Gestation Incision Type Labor Labor Length Hrs Delivered By Post Complications Tubal Sterilization Discharge Date Comments 2 5 Discharge Information Feeding Method Contraceptive Method Maternal HG B and HCT Levels Ob Episode Information Episode Created Date Number of Fetuses Patient Bloodtype Patient rh Status Prepregnancy Weight lbs Domestic Partner Domestic Partner Phone Father Name Casework Specialist Status 08/05/19 23 1 CLOSED Fetus Data First Name Last Name Admitted to NICU Weight (g) Sex Living Outcome Pediatric Complications Fetus ID Race Codes Race Delivery Type , Spontane ous [id number] Arturo Calculation Initial Arturo Date Initial Exam Date Initial Exam Provider Initial Ultrasound Date Last Menstrual Period Date Ultra Sound Weeks Gestation 0 Eighteen To Twenty Week Arturo Update Ultra Sound Date Fundal Height At Umbil Quickening Date Ultra Sound Latest Weeks Gestation Final Arturo Confirmed By Final Arturo Confirmed Date Final Arturo Date Ultra Sound Latest Days Gestation 0 0 Menstrual History Last Menstrual Date Menses Monthly On Bcp Conception Prior Menses Frequency Hcg Plus Date Menarche Onset Age Delivery Information Delivery Date Delivery Type Labor Anesthesia Weeks Gestation Incision Type Labor Labor Length Hrs Delivered By Post Complications Tubal Sterilization Discharge Date Comments 2 5 Discharge Information Feeding Method Contraceptive Method Maternal HG B and HCT Levels
--- OUTSIDE RECORDS SUMMARY | 2024-12-04 22:51 | XMS_ITS | Clinical Summary ---
Author Organization [employer] ([place], [place], [place], [place]) Address [address] [place] [address] Care Team Providers Care Carry All Driver Name Role Phone Skylar Espinal MD Primary Care Provider [phone] Allergies No known active allergies Medications No [...] Date Moses rded Speak language other than Armenian at home Not on file 02/19/2023 Want [...] Mass Index 35.02 12/26/2022 7:02 PM EST Plan of Treatment Health Maintenance Due Date Last Done Comments Depression Screening (12+) 2016 HIV Screening 11/12/2019 Meningococcal B Vaccine (1 o f 2 - Standard) 2020 Hepatitis C Screening 2022 Pneumococcal Vaccine: 0-49 Y ears (1 of 2 - PCV) 11/12/2023 03/17/2007, 2004 Tobacco Cessation Counseling and Screening (12+) 12/27/2023 12/26/2022 COVID-19 VACCINE (3 - 2024-2 6 season) 2024 10/07/2020, 09/16/2020 Influenza Vaccine (#1) 2024 Lipid Panel 2024 DTAP/TDAP/TD VACCINES (6 - T d or Tdap) 05/01/2026 05/01/2016, 09/08/2007, 02/25/2006, Additional history exists IPV Vaccine Discontinued 07/18/2009, 08/10, 02/25/2006, Additional history exists Meningococcal A Vaccine Discontinued 05/01/2016 Insurance [facility] AETNA [facility] Care Teams Carry All Driver Relationship Specialty Start Date End Date Skylar Espinal MD [address] [address] PCP - General Family Medicine 07/28/22
--- OUTSIDE RECORDS SUMMARY | 2024-12-04 22:51 | XMS_ITS | Referral Summary ---
Author Organization [employer] ([place], [place], [place], [place]) Address [address] [place] [address] Care Team Providers Care Director Case Management Name Role Phone Skylar Espinal MD Primary Care Provider [phone] Allergies No known active allergies Medications No [...] Date Moses rded Speak language other than Kinyarwanda at home Not on file 02/19/2023 Want [...] 12/26/2022 7:02 PM EST Plan of Treatment Not on file [place] [address] [address] [place] [id number] [facility] [place] [facility] [place] Care Teams Director Case Management Relationship Specialty Start Date End Date Skylar Espinal MD [address] [address] PCP - General Family Medicine 07/28/22
--- NOTE | 2024-12-04 23:01 | ED_ITS ---
Discharge Plan Disposition Patient Disposition: Home, Self-Care Prescriptions Prescriptions: No Action metronidazole 500 mg tablet 500 mg PO BID 7 Days Qty: 14 0RF metronidazole 500 mg tablet 500 mg PO BID 7 Days Qty: 14 0RF Referrals Follow up/Referrals: Provider,Referral, MD [Primary Care Provider, Medical] - See instructions Activity Restrictions/Add. Instructions Additional Instructions/Restrictions: With eversion of your upper and lower lids there is no evidence of retained foreign body however your symptoms are consistent with a very superficial corneal epithelial injury secondary to the nail that was in your eye. Please take your topical antibiotic drops 2 drops in the affected eye 4 times a day over the next week follow-up with an eye doctor if you are having any vision changes or other concerns. Clinical Impressions Clinical Impression: Corneal abrasion Print Language Print Language: Trinidadian Discharge ED Provider: Titus Ramos General Adult HPI General Chief complaint: Eye Problems Stated complaint: toenail in eye Time Seen by Provider: 12/04/24 22:57 Mode of Arrival: Ambulatory Source of Information: Patient Description of Symptoms (Recalled from ER Triage Doc. by RN): patient presents for something in her right eye. patient stated she was clipping her yared toenails and believes that is the culprit. History of Present Illness HPI narrative: Patient is a 19-year-old female who was cutting her daughter's toenails when she felt like one of the toenails flew up into her eye. She subsequently irrigated it and could not see the toenail itself but felt as though she had a foreign body in her eye. Related Data Previous Rx's ?Medication ?Instructions ?Recorded metronidazole 500 mg tablet 500 mg PO BID 7 days #14 t abs 09/22/24 metronidazole 500 mg tablet 500 mg PO BID 7 days #14 t abs 09/22/24 Allergies Allergy/AdvReac Type Severity Reaction Status Date / Time No Known Allergies Allergy Verified 09/22/24 18:43 [facility] Disclaimer: The information contained in this section may have been updated after the angel ent was seen, as this information can be updated by other users. Social History (Updated 09/22/24 @ 19:55 by Isabel Man APRN) Smoking Status: Current every day smoker alcohol intake: never current occupational status: unemployed Travel in the last 8 weeks?: None Have you lived/traveled outside US in past 30 days?: No Contact w/someone who lives/traveled outside US past 30 days?: No Exposure to someone with infectious disease in past 14 days?: No Do you have a fever (greater than 100.4 F or 38 C)?: No Have you tested positive for COVID-19?: No Exposed to someone with COVID-19 in past 14 days?: No Do you have a sore throat?: No Do you have a cough?: No Do you have any weakness?: No Do you have any diarrhea?: No Are you experiencing any unusual bleeding?: No Do you have any muscle aches/pain?: No Do you have any abdominal pain?: No Are you experiencing loss of taste or smell?: No ROS Obtained: Yes All systems reviewed & no additional complaints except as documented Physical Exam General General appearance: alert and in no apparent distress Eye Eye exam: Present normal appearance and other (With eversion of the upper and lower lids no foreign body noted fluorescein tetracaine and Graham lamp exam did not demonstrate a significant uptake but patient did have complete resolution of her symptoms with tetracaine) Respiratory Respiratory exam: Present normal lung sounds bilaterally Cardiovascular Cardiovascular exam: Present regular rate Neurological Exam Neurological exam: Present alert and oriented X3 Medical Decision Making Medical Records Screening: Per USPSTF and CDC recommendations, given the prevalence of disease in our region, it is our hospital?s policy to screen for HIV and viral Hepatitis for all patients aged 18 and over and those with ongoing risk factors. Rogerio Inquiry Pt receiving controlled substance: No Vital Signs: 12/04/24 22:45 Temperature 98.2 F Temperature Source Oral Pulse Rate [Right Radial] 89 Respiratory Rate 18 Blood Pressure [Right Arm] 163/84 H Blood Pressure Mean [Right Arm] 110 Blood Pressure Source [Right Arm] Automatic Cuff Blood Pressure Position [Right Arm] Sitting 02 Sat by Pulse Oximetry 100 Oxygen Delivery Method Room Air Medical Decision Narrative: 19-year-old with above history and physical. She had complete resolution of her symptoms and the foreign body sensation with tetracaine suggesting that this is a corneal epithelial injury. However I was not able to identify a foreign body with eversion of her upper and lower lids looking throughout the conjunctival region and lid regions. Therefore I believe that this is just a superficial scratch and that the foreign body itself was likely expelled initially at home when she irrigated this. I have given her topical antibiotic drops advised her on how to use this. At the moment I do not think that she needs to follow-up with ophthalmology but I told her if her symptoms do not improve that she needs to do this. Ultimately patient was discharged in stable condition. Critical Care Critical Care Time Critical Care Time: No
[2024-12-04 23:08] VITALS: BP 163/84; PULSE 82; RESP 16; TEMP 36.8; O2SAT 99
== END 2024-12-04 23:10 | disposition home or self-care (01) ==
PROVIDERS: Emergency Provider Student in an Organized Health Care Education/Training Program
DX: S05.01XA Injury of conjunctiva and corneal abrasion without foreign body, right eye, initial encounter (principal); W44.9XXA Unspecified foreign body entering into or through a natural orifice, initial encounter
CPT/HCPCS: 99282; 99283